=== PATIENT | female | born 1955 | race Caucasian/White ===

== ENCOUNTER 2017-02-15 07:35 | Emergency (ER) | payer BC ==
[2017-02-15 07:43] VITALS: BP 104/83
--- NOTE | 2017-02-15 08:01 | UC ---
Respiratory Complaint HPI - HPI Summary HPI Summary: 61 yo female with sinus pressure and pain x 10 days low energy no f/c no n/c post nasal drip and cough - History of Current Complaint Chief Complaint: UCRespiratory Stated Complaint: SINUS ISSUE Hx Obtained From: Patient Hx Last Menstrual Period: post menopausal Onset/Duration: Gradual Onset, Lasting Days - 10 Timing: Constant Severity Initially: Mild Severity Currently: Moderate Pain Intensity: 4 Pain Scale Used: 0-10 Numeric Character: Cough: Nonproductive Aggravating Factors: Nothing Alleviating Factors: Nothing Associated Signs And Symptoms: Positive: Nasal Congestion, Hoarseness, Sinus Discomfort - Allergies/Home Medications Allergies/Adverse Reactions: Allergies Allergy/AdvReac Type Severity Reaction Status Date / Time Sulfamethoxazole Allergy Intermediate Hives Verified 03/01/16 07:47 w/Trimethoprim [From Bactrim] Home Medications: Home Medications Methylphenidate HCl [Metadate ER] 20 mg PO PRN 02/15/17 [History] PMH/Surg Hx/FS Hx/Imm Hx Previously Healthy: Yes - Surgical History Surgical History: None - Family History Known Family History: Positive: Hypertension, Other - No Hx of cancer - Social History Alcohol Use: Weekly Substance Use Type: None Smoking Status (MU): Never Smoked Tobacco - Immunization History Most Recent Tetanus Shot: unsure Review of Systems Constitutional: Negative Skin: Negative Eyes: Negative ENT: Nasal Discharge, Sinus Congestion, Sinus Pain/Tenderness Respiratory: Negative Cardiovascular: Negative Gastrointestinal: Negative Genitourinary: Negative Motor: Negative Neurovascular: Negative Musculoskeletal: Negative Neurological: Negative Psychological: Negative Is Patient Immunocompromised?: No All Other Systems Reviewed And Are Negative: Yes Physical Exam Triage Information Reviewed: Yes Appearance: Well-Appearing, No Pain Distress, Well-Nourished Vital Signs: Initial Vital Signs Temp 99.1 F 02/15/17 07:39 Pulse 94 02/15/17 07:39 Resp 18 02/15/17 07:39 BP 104/83 02/15/17 07:39 Pulse Ox 100 02/15/17 07:39 Vital Signs Reviewed: Yes Eyes: Positive: Conjunctiva Clear ENT: Positive: Hearing grossly normal, Nasal congestion, Nasal drainage, TMs normal, Hoarse voice, Sinus tenderness, Uvula midline. Negative: Tonsillar swelling, Tonsillar exudate, Trismus, Muffled voice, Dental tenderness Neck: Positive: Nontender, No Lymphadenopathy Respiratory: Positive: Lungs clear, Normal breath sounds, No respiratory distress, No accessory muscle use Cardiovascular: Positive: RRR, No Murmur, Pulses Normal Musculoskeletal: Positive: ROM Intact, No Edema Neurological: Positive: Alert Psychological Exam: Normal Skin Exam: Normal UC Diagnostic Evaluation - Laboratory O2 Sat by Pulse Oximetry: 100 - normal/not hypoxic Respiratory Course/Dx - Differential Dx/Diagnosis Provider Diagnoses: acute sinusitis Discharge - Discharge Plan Condition: Stable Disposition: HOME Prescriptions: Amoxicillin PO (*) [Amoxicillin 875 MG (*)] 875 mg PO BID #20 tab Patient Education Materials: Sinusitis (ED) Referrals: Jennifer Vivar MD [Primary Care Provider] - 5 Days (if not better)
== END 2017-02-15 08:05 | disposition home or self-care (01) ==
LOC: UCEAST 07:35
DX: J01.90 Acute sinusitis, unspecified (principal)
CPT/HCPCS: 99212; G0463

== ENCOUNTER 2017-04-01 07:06 | Emergency (ER) | payer BC ==
[2017-04-01 07:17] VITALS: BP 112/65
--- NOTE | 2017-04-14 13:12 | UC ---
Alen Brown Tecjoon, scribed for Shelbie Barron DO on 04/01/17 at 0748 . Epistaxis Nasal HPI - HPI Summary HPI Summary: This patient is a 61 year old female presenting to [facility] with a chief complaint of probable sinus infection since a few days ago. The pain is rated 8/10 in severity. Symptoms aggravated by nothing. Symptoms alleviated by nothing. Patient additionally reports chills, sinus pressure, green/yellow phlegm, cough. - History of Current Complaint Chief Complaint: UCGeneralIllness Stated Complaint: sinus CONGESTION, AND CHILLS Time Seen by Provider: 04/01/17 07:13 Hx Obtained From: Patient Hx Last Menstrual Period: post menopausal Onset/Duration: Gradual Onset, Still Present Timing: Constant Severity Currently: Moderate Pain Intensity: 8 Pain Scale Used: 0-10 Numeric Aggravating Factor(s): Nothing Alleviating Factor(s): Nothing Associated Signs And Symptoms: Positive: Nasal Discharge - Allergies/Home Medications Allergies/Adverse Reactions: Allergies Allergy/AdvReac Type Severity Reaction Status Date / Time Sulfamethoxazole Allergy Intermediate Hives Verified 04/01/17 07:17 w/Trimethoprim [From Bactrim] PMH/Surg Hx/FS Hx/Imm Hx Previously Healthy: Yes Neurological History: Other - negative: dementia Other Neurological History: negative: dementia Other History Of: Negative For: HIV - Surgical History Surgical History: None - Family History Known Family History: Positive: Hypertension, Other - No Hx of cancer - Social History Alcohol Use: Occasionally Substance Use Type: None Smoking Status (MU): Never Smoked Tobacco - Immunization History Most Recent Influenza Vaccination: 2016 Most Recent Tetanus Shot: unsure Review of Systems Constitutional: Negative - fever, Chills ENT: Nasal Discharge, Sinus Congestion, Sinus Pain/Tenderness Respiratory: Cough All Other Systems Reviewed And Are Negative: Yes Physical Exam Triage Information Reviewed: Yes Vital Signs: Initial Vital Signs Temp 98.3 F 04/01/17 07:12 Pulse 87 04/01/17 07:12 Resp 20 04/01/17 07:12 BP 112/65 04/01/17 07:12 Pulse Ox 98 04/01/17 07:12 - Additional Comments Appearance: Well-Appearing, No Pain Distress, Well-Nourished Eyes: conjunctiva clear, no discharge ENT: Hearing grossly normal, no muffled/hoarse voice. Neck: Normal, Supple Respiratory/Lung Sounds: Lungs clear, Normal breath sounds, No respiratory distress, No accessory muscle use Cardiovascular: RRR, No murmur Musculoskeletal: Normal Neurological: Alert, muscle tone normal Psychiatric:Normal, age appropriate behavior Skin: Normal, Warm, Dry, Normal color Epistaxis Nasal Course/Dx - Course Course Of Treatment: This patient is a 61 year old female presenting to [facility] with a chief complaint of probable sinus infection since a few days ago. The pain is rated 8/10 in severity. Symptoms aggravated by nothing. Symptoms alleviated by nothing. Patient additionally reports chills, sinus pressure, green/yellow phlegm, cough. Paitnet will be diagnosed with Sinusitis. Patient will be discharged with prescription for Augmentin and follow up from PCP. The patient is agreeable with this plan. Medications reviewed. Allergies reviewed. - Differential Dx/Diagnosis Differential Diagnosis/HQI/PQRI: Sinusitis Provider Diagnoses: sinusitis Discharge - Discharge Plan Condition: Stable Disposition: HOME Prescriptions: Amoxicillin/Clavulanate TAB* [Augmentin TAB 875*] 875 mg PO BID #20 tab Patient Education Materials: Sinusitis (ED) Referrals: Jennifer Vivar MD [Primary Care Provider] - If Needed Additional Instructions: TRY USING THE NETTI POT IN THE MORNINGS DISCUSSED. YOU MUST ALWAYS USE CLEAN WATER. REMEMBER, POSTURE IS AN IMPORTANT FACTOR IN SINUS DRAINAGE. MOVE YOUR NECK, BREATHE. ANTIBIOTICS ARE NOT CURRENTLY INDICATED FOR YOUR CONDITION. HOWEVER, IF YOUR SYMPTOMS WORSEN OR PERSIST FOR OVER THE NEXT 3-5 DAYS, YOU CAN TAKE THE FOLLOWING MEDICATION: AUGMENTIN: Augmentin is a mixture of amoxicillin and clavulanate. Amoxicillin is a member of the penicillin family. It covers the germs likely to cause ear, bronchial, and urinary infections better than plain penicillin. The addition of clavulanate allows it to cover staph infections of the skin, as well as resistant cases of ear and sinus infections. Your physician has chosen Augmentin for you because of the special nature of your situation. Augmentin is best taken with meals. Nausea after taking the medication is rare, but can occur. Diarrhea can occur, particularly in small children. Vaginal yeast infections, and oral thrush in infants are also common. Contact your physician if these problems occur. Allergy to penicillins is common. If you have had an allergic reaction to any drug of the penicillin family, you should never take any other penicillin. Notify your doctor at once if you develop hives, shortness of breath, swelling, or faintness. ANYTIME YOU TAKE AN ANTIBIOTIC, IT IS IMPORTANT TO REPLENISH THE BODY'S SUPPLY OF "GOOD BACTERIA." YOU CAN GET GOOD BACTERIA FROM HIGH QUALITY CULTURED FOODS SUCH LOCAL YOGURT, SOUR KRAUT, QUINTIN MIRA, NATURALLY FERMENTED PICKLES AND PROBIOTIC DRINKS. YOU CAN ALSO GET GOOD BACTERIA FROM A PROBIOTIC SUPPLEMENT. YOU WOULD LIKELY BENEFIT FROM OSTEOPATHIC MANIPULATION. WE RECOMMEND THAT YOU FIND AN OSTEOPATHIC PHYSICIAN IN YOUR AREA WHO DOES LYMPHATIC, MYOFACIAL AND VISCERAL WORK The documentation as recorded by the Alen allen Tecjoon accurately reflects the service I personally performed and the decisions made by me, Shelbie Barron DO.
== END 2017-04-01 08:00 | disposition home or self-care (01) ==
LOC: UCEAST 07:06
DX: J32.9 Chronic sinusitis, unspecified (principal); Z88.2 Allergy status to sulfonamides
CPT/HCPCS: 99212; G0463

== ENCOUNTER 2017-06-15 17:29 | Emergency (ER) | payer BC ==
[2017-06-15 17:48] VITALS: BP 119/65
[2017-06-15] MEDS ORDERED: Amoxicillin/Clavulanate TAB* 500 MG PO ONE (18:46)
[2017-06-15] MEDS ORDERED: Tetan/Diph/Pertus SYR(Tdap)* 0.5 ML SYR(BOOSTRIX) use SYR IM ONE (18:49)
--- NOTE | 2017-06-15 18:58 | UC ---
Skin Complaint HPI - HPI Summary HPI Summary: Patient received a puncture wound from a broken piece of glass in her garbage last night to her right palm near her thumb, area around puncture wound is red and tender around that is bruised neuro motor and circulation is intact distally - History of Current Complaint Chief Complaint: UCUpperExtremity Time Seen by Provider: 06/15/17 18:16 Stated Complaint: HAND LAC Hx Obtained From: Patient Hx Last Menstrual Period: post menopausal ?: No Onset/Duration: Sudden Onset, Lasting Days - 1, Still Present Timing: Constant Onset Severity: Mild Current Severity: Mild Pain Intensity: 0 Pain Scale Used: 0-10 Numeric Location: Discrete - Palm of her hand Character: Pain Aggravating Factor(s): Nothing - U medical: The car HIS stomach is killing him safely and we can hold responsibility to follow up with a reasonable person put him in because he the right is for use but isn't [facility] community resources to extend into the hospital Alleviating Factor(s): Nothing Associated Signs & Symptoms: Positive: Tenderness - Allergy/Home Medications Allergies/Adverse Reactions: Allergies Allergy/AdvReac Type Severity Reaction Status Date / Time sulfamethoxazole Allergy Swelling Verified 06/15/17 17:48 [From Bactrim] trimethoprim [From Bactrim] Allergy Swelling Verified 06/15/17 17:48 Review of Systems Constitutional: Negative Skin: Negative, Other - Puncture wound to the palmar surface of her right hand near her thumb Eyes: Negative ENT: Negative Respiratory: Negative Cardiovascular: Negative Gastrointestinal: Negative Genitourinary: Negative Motor: Negative Neurovascular: Negative Musculoskeletal: Negative Neurological: Negative Psychological: Negative Is Patient Immunocompromised?: No All Other Systems Reviewed And Are Negative: Yes PMH/Surg Hx/FS Hx/Imm Hx Previously Healthy: No Endocrine History: Hypothyroidism Other History Of: Negative For: HIV - Surgical History Surgical History: None - Family History Known Family History: Positive: Hypertension, Other - No Hx of cancer - Social History Occupation: Employed Full-time Lives: With Family Alcohol Use: Occasionally Substance Use Type: None Smoking Status (MU): Never Smoked Tobacco - Immunization History Most Recent Influenza Vaccination: 2015 Most Recent Tetanus Shot: unsure Physical Exam Triage Information Reviewed: Yes Appearance: Well-Appearing, No Pain Distress, Well-Nourished Vital Signs: Initial Vital Signs Temp 98.3 F 06/15/17 17:37 Pulse 77 06/15/17 17:37 Resp 16 06/15/17 17:37 BP 119/65 06/15/17 17:37 Pulse Ox 97 06/15/17 17:37 Vital Signs Reviewed: Yes Eye Exam: Normal Eyes: Positive: Conjunctiva Clear ENT Exam: Normal ENT: Positive: Normal ENT inspection, Hearing grossly normal. Negative: Nasal congestion, Nasal drainage, Trismus, Muffled voice, Hoarse voice Neck exam: Normal Neck: Positive: Supple, Nontender Respiratory Exam: Normal Respiratory: Positive: No respiratory distress, No accessory muscle use Cardiovascular Exam: Normal Cardiovascular: Positive: Pulses Normal, Brisk Capillary Refill Musculoskeletal Exam: Normal Musculoskeletal: Positive: Strength Intact, ROM Intact, No Edema Neurological Exam: Normal Neurological: Positive: Alert Psychological Exam: Normal Skin Exam: Other Skin: Positive: Other - Puncture wound to her right hand just below the base of her thumb immediate area has about a 4 cm diameter area of erythema in about a 1 cm area of bruising outside of that Course/Dx - Course Course Of Treatment: Update tetanus start on Augmentin and warm soaks follow with PCP when necessary and follow with hand surgeon - Diagnoses Provider Diagnoses: Puncture wound to the right hand Discharge - Sign-Out/Discharge Documenting (check all that apply): Discharge - Discharge Plan Condition: Stable Disposition: HOME Prescriptions: Amoxicillin/Clavulanate TAB* [Augmentin TAB 875*] 875 mg PO BID #20 tab Patient Education Materials: Puncture Wound (ED), Diphtheria/Acellular Pertussis/Tetanus Booster Vaccine (By injection), Warm Compress or Soak (ED) Referrals: Jennifer Vivar MD [Primary Care Provider] - Rosalia Castro MD [Medical Doctor] - 3 Days - Billing Disposition and Condition Condition: STABLE Disposition: HOME
== END 2017-06-15 19:15 | disposition home or self-care (01) ==
LOC: UCEAST 17:29
DX: S61.431A Puncture wound without foreign body of right hand, initial encounter (principal); W25.XXXA Contact with sharp glass, initial encounter; Y92.9 Unspecified place or not applicable; Z23 Encounter for immunization; Z88.2 Allergy status to sulfonamides
CPT/HCPCS: 90715; 96372; 99212; A9270-GY; G0463

== ENCOUNTER 2018-03-03 08:18 | Emergency (ER) | payer BC ==
[2018-03-03 08:26] VITALS: BP 114/68
--- NOTE | 2018-03-03 08:40 | UC ---
Throat Pain/Nasal Geovani HPI - HPI Summary HPI Summary: 62-year-old woman comes to clinic today with chief complaint of runny nose sore throat cough chest congestion. She states she's had some upper respiratory tract infection symptoms for almost 2 months. She did improve quite a bit after taking Augmentin 2 months ago but she feels like the infection never totally went away. Last 2 days been having yellow rhinorrhea and sputum. No wheezing. - History of Current Complaint Chief Complaint: UCRespiratory Stated Complaint: CONGESTED Time Seen by Provider: 03/03/18 08:29 Hx Last Menstrual Period: post menopausal Pain Intensity: 4 - Allergies/Home Medications Allergies/Adverse Reactions: Allergies Allergy/AdvReac Type Severity Reaction Status Date / Time sulfamethoxazole Allergy Swelling Verified 06/15/17 17:48 [From Bactrim] trimethoprim [From Bactrim] Allergy Swelling Verified 06/15/17 17:48 PMH/Surg Hx/FS Hx/Imm Hx Previously Healthy: Yes Endocrine History: Hypothyroidism Other History Of: Negative For: HIV - Surgical History Surgical History: None - Family History Known Family History: Positive: Hypertension, Other - No Hx of cancer - Social History Alcohol Use: Occasionally Substance Use Type: None Smoking Status (MU): Never Smoked Tobacco - Immunization History Most Recent Influenza Vaccination: 2016 Most Recent Tetanus Shot: unsure Review of Systems All Other Systems Reviewed And Are Negative: Yes Constitutional: Positive: Negative Skin: Positive: Negative Eyes: Positive: Negative ENT: Positive: Sore Throat, Nasal Discharge, Sinus Congestion Respiratory: Positive: Cough Cardiovascular: Positive: Negative Gastrointestinal: Positive: Negative Motor: Positive: Negative Neurovascular: Positive: Negative Musculoskeletal: Positive: Negative Neurological: Positive: Negative Psychological: Positive: Negative Is Patient Immunocompromised?: No Physical Exam Triage Information Reviewed: Yes Appearance: No Pain Distress, Well-Nourished, Ill-Appearing - mild Vital Signs: Initial Vital Signs Temp 97.8 F 03/03/18 08:23 Pulse 81 03/03/18 08:23 Resp 18 03/03/18 08:23 BP 114/68 03/03/18 08:23 Pulse Ox 99 03/03/18 08:23 Vital Signs Reviewed: Yes Eye Exam: Normal Eyes: Positive: Conjunctiva Clear ENT: Positive: Pharyngeal erythema, Nasal congestion, Nasal drainage, TMs normal Neck exam: Normal Neck: Positive: Supple Respiratory: Positive: Lungs clear, Normal breath sounds, No respiratory distress Cardiovascular: Positive: RRR Musculoskeletal Exam: Normal Musculoskeletal: Positive: Strength Intact, ROM Intact Neurological Exam: Normal Neurological: Positive: Alert, Muscle Tone Normal Psychological Exam: Normal Psychological: Positive: Age Appropriate Behavior Skin Exam: Normal Throat Pain/Nasal Course/Dx - Course Course Of Treatment: DISCUSSED VIRAL VERSES BACTERIAL INFECTION AND THE ROLE OF ANTIBIOTICS. THE PATIENT WISHES TO BE ON ANTIBIOTIC AT THIS TIME. - Differential Dx/Diagnosis Provider Diagnosis: Upper respiratory tract infection Discharge - Sign-Out/Discharge Documenting (check all that apply): Patient Departure All imaging exams completed and their final reports reviewed: No Studies - Discharge Plan Condition: Stable Disposition: HOME Prescriptions: Amoxicillin/Clavulanate TAB* [Augmentin TAB 875*] 875 mg PO BID #20 tab Patient Education Materials: Upper Respiratory Infection (ED) Referrals: Jennifer Vivar MD [Primary Care Provider] - Additional Instructions: FOLLOW UP WITH YOUR DOCTOR IF NOT COMPLETELY IMPROVED. GET RECHECKED FOR ANY WORSENING OF YOUR CONDITION OR QUESTIONS OR CONCERNS. - Billing Disposition and Condition Condition: STABLE Disposition: Home
== END 2018-03-03 08:50 | disposition home or self-care (01) ==
LOC: UCEAST 08:18
DX: N39.0 Urinary tract infection, site not specified (principal); Z88.1 Allergy status to other antibiotic agents
CPT/HCPCS: 99212; G0463

== ENCOUNTER 2018-05-27 07:16 | Emergency (ER) | payer BC ==
--- NOTE | 2018-05-27 07:19 | UC ---
Complaint Female HPI - HPI Summary HPI Summary: Pt presents with 5 days progressive dysuria, hematuria and pressure. no n/v. No back. No vaginal discharge, itching, odor. pt with previous h/o UTI - years ago No OTC med taken medications reviewed this visti - History Of Current Complaint Stated Complaint: URINARY ISSUE Hx Obtained From: Patient, Medical Records Hx Last Menstrual Period: post menopausal - Allergies/Home Medications Allergies/Adverse Reactions: Allergies Allergy/AdvReac Type Severity Reaction Status Date / Time sulfamethoxazole Allergy Swelling Verified 05/27/18 08:05 [From Bactrim] trimethoprim [From Bactrim] Allergy Swelling Verified 05/27/18 08:05 Home Medications: Home Medications Phenazopyridine TAB* [Pyridium 100 mg TAB*] 100 mg PO ONCE 05/27/18 [History Confirmed 05/27/18] PMH/Surg Hx/FS Hx/Imm Hx Previously Healthy: Yes Other History Of: Negative For: HIV - Surgical History Surgical History: None - Family History Known Family History: Positive: Hypertension, Other - No Hx of cancer, Non- Contributory - Social History Occupation: Employed Full-time Lives: With Family Alcohol Use: Occasionally Substance Use Type: None Smoking Status (MU): Never Smoked Tobacco - Immunization History Most Recent Influenza Vaccination: 2016 Most Recent Tetanus Shot: unsure Review of Systems All Other Systems Reviewed And Are Negative: Yes Constitutional: Positive: Negative Skin: Positive: Negative Genitourinary: Positive: Dysuria, Hematuria, Frequency, Urgency. Negative: Vaginal/Penile Burning, Vaginal/Penile Discharge, Vaginal/Penile Pain Physical Exam - Summary Physical Exam Summary: Vital Signs Reviewed: Yes A+Ox3, no distress Eyes: Conjunctiva Clear, ADAMARIS. EOM intact and full ENT: Hearing grossly normal TM x 2 clear, mmoist, uvula midline, no exudate, no erythema Neck: Positive: Supple Respiratory: Positive: No respiratory distress, No accessory muscle use + CTA throughout no w/r Cardiovascular: RRR nl s1, s2 no m/r CBT <2 sec abd soft + BS nt/nd no guarding, no distension, no CVA Musculoskeletal Exam: ANTONIO x 4 without difficulty Strength Intact, ROM Intact Neurological: Positive: Alert, + sensation throughout Psychological: Positive: Normal Response To Family Skin: Positive: no rash, no ecchymosis Triage Information Reviewed: Yes Complaint Female Dx - Course Course Of Treatment: PT presents with progressive hematuria, urgency, pressure. No fever, chills. no analesia. reviewed urinalysis- non convincing, but symptomatic. will start abx. pyridium. hydrate. culture. return precautions - Differential Dx/Diagnosis Provider Diagnosis: UTI (urinary tract infection) Discharge - Sign-Out/Discharge Documenting (check all that apply): Patient Departure All imaging exams completed and their final reports reviewed: No Studies - Discharge Plan Condition: Stable Disposition: HOME Prescriptions: Cephalexin CAP* [Keflex CAP*] 500 mg PO BID #14 cap Phenazopyridine TAB* [Pyridium 100 mg TAB*] 100 mg PO TID PRN #9 tab PRN Reason: burning with urination Patient Education Materials: Urinary Tract Infection in Women (ED) Referrals: Jennifer Vivar MD [Primary Care Provider] - Wilda Rocha PA [Physician Alteration Tailor Apprentice] - Additional Instructions: - stay well hydrated - drink plenty of non-alcoholic, non caffinated beverages - your urine will be further tested - if you require any changes to your treatment, we will contact you - this usually take 2 days - Contact your primary doctor to arrange a follow-up appointment next week. Contact your doctor or return with questions or concerns - Take your antibiotics exactly as prescribed until gone - Take pyridium as prescribed for discomfort. This will make your urine blaze orange - this is normal - Okay to alternate ibuprofen (Advil, Motrin) and Tylenol every 3 hours for pain. Take with food - Call your doctor or return with questions or concerns - Billing Disposition and Condition Condition: STABLE Disposition: Home
[2018-05-27 08:12] VITALS: BP 127/76
--- NOTE | 2018-05-28 15:45 | UC ---
- Progress Note Progress Note: Urine culture preliminary >100,000 E.Coli Treated with Pyridium and Cephalexin. Awaiting sensitivities. Course/Dx - Course Course Of Treatment: Pt on Cephalexin, awaiting sensitivities - Diagnoses Provider Diagnoses: UTI (urinary tract infection) Discharge - Sign-Out/Discharge Documenting (check all that apply): Post-Discharge Follow Up All imaging exams completed and their final reports reviewed: No Studies - Discharge Plan Condition: Stable Disposition: HOME Prescriptions: Cephalexin CAP* [Keflex CAP*] 500 mg PO BID #14 cap Phenazopyridine TAB* [Pyridium 100 mg TAB*] 100 mg PO TID PRN #9 tab PRN Reason: burning with urination Patient Education Materials: Urinary Tract Infection in Women (ED) Referrals: Jennifer Vivar MD [Primary Care Provider] - Wilda Rocha PA [Physician Principal Product Manager] - Additional Instructions: - stay well hydrated - drink plenty of non-alcoholic, non caffinated beverages - your urine will be further tested - if you require any changes to your treatment, we will contact you - this usually take 2 days - Contact your primary doctor to arrange a follow-up appointment next week. Contact your doctor or return with questions or concerns - Take your antibiotics exactly as prescribed until gone - Take pyridium as prescribed for discomfort. This will make your urine blaze orange - this is normal - Okay to alternate ibuprofen (Advil, Motrin) and Tylenol every 3 hours for pain. Take with food - Call your doctor or return with questions or concerns - Billing Disposition and Condition Condition: STABLE Disposition: Home - Attestation Statements Provider Attestation: The patient was not presented to, seen by, or examined by me. -Dl
== END 2018-05-27 08:43 | disposition home or self-care (01) ==
LOC: UCEAST 07:16
DX: N39.0 Urinary tract infection, site not specified (principal); B96.20 Unspecified Escherichia coli [E. coli] as the cause of diseases classified elsewhere; R31.9 Hematuria, unspecified; Z88.2 Allergy status to sulfonamides
CPT/HCPCS: 81003; 87077; 87086; 87186; 99212; G0463

== ENCOUNTER 2018-07-29 14:50 | Emergency (ER) | payer BC ==
--- NOTE | 2018-07-29 14:58 | UC ---
Complaint Female HPI - HPI Summary HPI Summary: 62 yo female presents with urinary burning, frequency, and bladder pressure for the last week. She tells me that she had a UTI about 2 months ago and felt much better, but feels that it never fully resolved. Her symptoms have increased over the last week. Denies abdominal pain, n/v, flank pain, fever, hematuria, vaginal bleeding or discharge. - History Of Current Complaint Stated Complaint: URINARY COMPLAINT Time Seen by Provider: 07/29/18 14:57 Hx Obtained From: Patient Hx Last Menstrual Period: post menopausal Onset/Duration: Gradual Onset Timing: Constant Severity Initially: Mild Severity Currently: Moderate Pain Intensity: 3 Pain Scale Used: 0-10 Numeric - Allergies/Home Medications Allergies/Adverse Reactions: Allergies Allergy/AdvReac Type Severity Reaction Status Date / Time sulfamethoxazole Allergy Swelling Verified 07/29/18 14:57 [From Bactrim] trimethoprim [From Bactrim] Allergy Swelling Verified 07/29/18 14:57 Home Medications: Home Medications Bioidentical Hormones 1 cap PO DAILY 07/29/18 [History] PMH/Surg Hx/FS Hx/Imm Hx - Additional Past Medical History Additional PMH: None Other History Of: Negative For: HIV - Surgical History Surgical History: None - Family History Known Family History: Positive: Hypertension, Other - No Hx of cancer, Non- Contributory - Social History Occupation: Employed Full-time Lives: With Family Alcohol Use: Occasionally Substance Use Type: None Smoking Status (MU): Never Smoked Tobacco - Immunization History Most Recent Influenza Vaccination: 2016 Most Recent Tetanus Shot: unsure Review of Systems All Other Systems Reviewed And Are Negative: Yes Constitutional: Positive: Negative Skin: Positive: Negative Respiratory: Positive: Negative Cardiovascular: Positive: Negative Gastrointestinal: Positive: Negative Genitourinary: Positive: Dysuria, Frequency, Urgency Neurovascular: Positive: Negative Neurological: Positive: Negative Psychological: Positive: Negative Physical Exam - Summary Physical Exam Summary: GENERAL: NAD. WDWN. No pain distress. SKIN: No rashes, sores, lesions, or open wounds. NECK: Supple. Nontender. No lymphadenopathy. CHEST: CTAB. No r/r/w. No accessory muscle use. Breathing comfortably and in no distress. CV: RRR. Without m/r/g. Pulses intact. Cap refill <2seconds ABDOMEN: Soft. NTTP. No CVA tenderness. Bowel sounds present NEURO: Alert. PSYCH: Age appropriate behavior. Triage Information Reviewed: Yes Vital Signs: Vital Signs: Temp Pulse Resp BP Pulse Ox 98.9 F 78 18 103/63 98 07/29/18 14:57 07/29/18 14:57 07/29/18 14:57 07/29/18 14:57 07/29/18 14:57 Laboratory Tests 07/29/18 15:05 POC Urine Color Yellow POC Urine Clarity Clear POC Urine pH 6.0 POC Ur Specif [place] 1.015 POC Urine Protein Negative POC Ur Glucose (UA) Negative POC Urine Ketones Negative POC Urine Blood Negative POC Urine Nitrite Negative POC Urine Bilirubin Negative POC Urine Urobilinogen 0.2 POC U Leukocyte Esteras Trace A Vital Signs Reviewed: Yes Complaint Female Dx - Course Course Of Treatment: UA with trace leuks. Given recent hx of UTI and current pt dysuria - will treat with macrobid as this was sensitive on last culture. - Differential Dx/Diagnosis Provider Diagnosis: UTI (urinary tract infection) Discharge - Sign-Out/Discharge Documenting (check all that apply): Patient Departure All imaging exams completed and their final reports reviewed: No Studies - Discharge Plan Condition: Stable Disposition: HOME Prescriptions: Nitrofurantoin Monohyd/M-Cryst [Macrobid 100 mg Capsule] 100 mg PO BID #10 cap Patient Education Materials: Urinary Tract Infection in Women (DC) Referrals: Jennifer Vivar MD [Primary Care Provider] - Additional Instructions: If you develop a fever, shortness of breath, chest pain, new or worsening symptoms - please call your PCP or go to the ED immediately. - Billing Disposition and Condition Condition: STABLE Disposition: Home
[2018-07-29 15:04] VITALS: BP 103/63
== END 2018-07-29 15:15 | disposition home or self-care (01) ==
LOC: UCEAST 14:50
DX: N39.0 Urinary tract infection, site not specified (principal); Z87.440 Personal history of urinary (tract) infections; Z88.2 Allergy status to sulfonamides
CPT/HCPCS: 81003; 87077; 87086; 87186; 99212; G0463

== ENCOUNTER 2018-08-08 11:26 | Emergency (ER) | payer BC ==
[2018-08-08 11:48] VITALS: BP 116/59
--- NOTE | 2018-08-08 12:04 | UC ---
Complaint Female HPI - HPI Summary HPI Summary: Patient is a 62-year-old female who presents to the urgent care with a chief complaint of having dysuria, urinary frequency, urinary urgency and the strong odor in the urine for the last 2 days. She reports that she just finished taking Macrobid for a UTI and she was feeling better and she stopped taking the medication. Now she is having the same symptoms. She denies any abdominal pain or back pain. She denies any nausea or vomiting or fevers or chills. She has no other complaints. - History Of Current Complaint Chief Complaint: UCGU Stated Complaint: BURNING URINATION Time Seen by Provider: 08/08/18 11:54 Hx Obtained From: Patient Hx Last Menstrual Period: post menopausal Pain Intensity: 2 - Allergies/Home Medications Allergies/Adverse Reactions: Allergies Allergy/AdvReac Type Severity Reaction Status Date / Time sulfamethoxazole Allergy Swelling Verified 08/08/18 11:48 [From Bactrim] trimethoprim [From Bactrim] Allergy Swelling Verified 08/08/18 11:48 PMH/Surg Hx/FS Hx/Imm Hx Other History Of: Negative For: HIV - Surgical History Surgical History: None - Family History Known Family History: Positive: Hypertension, Other - No Hx of cancer, Non- Contributory - Social History Alcohol Use: Rare Substance Use Type: None Smoking Status (MU): Never Smoked Tobacco - Immunization History Most Recent Influenza Vaccination: 2016 Most Recent Tetanus Shot: unsure Review of Systems All Other Systems Reviewed And Are Negative: Yes Constitutional: Positive: Negative Skin: Positive: Negative Eyes: Positive: Negative ENT: Positive: Negative Respiratory: Positive: Negative Cardiovascular: Positive: Negative Gastrointestinal: Positive: Negative Genitourinary: Positive: Dysuria, Frequency, Urgency Motor: Positive: Negative Neurovascular: Positive: Negative Musculoskeletal: Positive: Negative Neurological: Positive: Negative Psychological: Positive: Negative Is Patient Immunocompromised?: No Physical Exam - Summary Physical Exam Summary: VITAL SIGNS: Reviewed. GENERAL: Patient is a well developed and nourished female who is sitting comfortable in the stretcher. Patient is not in any acute respiratory distress. HEAD AND FACE: Normocephalic and atraumatic. EYES: PERRLA, EOMI x 2, EARS: Hearing grossly intact. MOUTH: Oropharynx within normal limits. NECK: Supple, trachea is midline, no adenopathy, no JVD, no carotid bruit, no c- spine tenderness, neck with full ROM. CHEST: Symmetric, no tenderness at palpation LUNGS: CTA B/L. No wheezing or crackles. CVS: RRR, S1 and S2 present, no murmurs or gallops appreciated. ABDOMEN: Soft, NT, No distention. Normal BS. EXTREMITIES: FROM in all major joints, no edema, no cyanosis or clubbing. NEURO: Alert and oriented x 3. No acute neurological deficits. Speech is normal and follows commands. SKIN: Dry and warm Triage Information Reviewed: Yes Vital Signs: Initial Vital Signs Temp 99.3 F 08/08/18 11:43 Pulse 80 08/08/18 11:43 Resp 18 08/08/18 11:43 BP 116/59 08/08/18 11:43 Pulse Ox 96 08/08/18 11:43 Complaint Female Dx - Course Course Of Treatment: He seems that the urinalysis negative for UTI. However, she just finished taking antibiotics and may be is masking the results for the urinalysis. Since the patient is having symptoms of her usual UTI I will place the patient in Ciprofloxacin and I will send the urine culture. She was recommended to follow up the culture with a primary care physician. The patient understands and agrees. She has no complaints. She is hemodynamically stable. - Differential Dx/Diagnosis Provider Diagnosis: UTI symptoms Discharge - Sign-Out/Discharge Documenting (check all that apply): Patient Departure All imaging exams completed and their final reports reviewed: No Studies - Discharge Plan Condition: Stable Disposition: HOME Prescriptions: Ciprofloxacin TAB* [Cipro 500 MG TAB*] 500 mg PO BID #6 tab Patient Education Materials: Urinary Urgency and Frequency (DC) Referrals: Jennifer Vivar MD [Primary Care Provider] - Additional Instructions: Take medications as instructed Increase your fluid intake Return to the if symptoms worsen - Billing Disposition and Condition Condition: STABLE Disposition: Home
--- NOTE | 2018-08-10 15:50 | UC ---
- Progress Note Progress Note: urine culture final results; No growth of clinically significant organisms As per the note, patient just completed the antibiotics when her urine was obtained but was treated as she was symptomatic. there is a possibility of urine culture being masked by the antibiotics. she was treated with ciprofloxacin for 3 days and today is her day 3. No change in plan. Course/Dx - Diagnoses Provider Diagnoses: UTI symptoms Discharge - Sign-Out/Discharge Documenting (check all that apply): Post-Discharge Follow Up All imaging exams completed and their final reports reviewed: No Studies - Discharge Plan Condition: Stable Disposition: HOME Prescriptions: Ciprofloxacin TAB* [Cipro 500 MG TAB*] 500 mg PO BID #6 tab Patient Education Materials: Urinary Urgency and Frequency (DC) Referrals: Jennifer Vivar MD [Primary Care Provider] - Additional Instructions: Take medications as instructed Increase your fluid intake Return to the UC if symptoms worsen - Billing Disposition and Condition Condition: STABLE Disposition: Home
== END 2018-08-08 12:11 | disposition home or self-care (01) ==
LOC: UCEAST 11:26
DX: R30.0 Dysuria (principal); R35.0 Frequency of micturition; R39.15 Urgency of urination; Z88.2 Allergy status to sulfonamides
CPT/HCPCS: 81003; 87086; 99212; G0463

== ENCOUNTER 2018-08-15 12:03 | Emergency (ER) | payer BC ==
[2018-08-15 13:26] VITALS: BP 117/74
--- NOTE | 2018-08-15 14:07 | UC ---
Complaint Female HPI - HPI Summary HPI Summary: PATIENT HAS HAD SEVERAL MONTHS OF UTI SYMPTOMS INCLUDING DYSURIA, FREQUENCY AND URGENCY. MOST RECENTLY SHE WAS TREATED WITH MACROBID ON 07/29/18 AND THEN WITH CIPROFLOXACIN ON 08/08/18. SHE STATES THAT HER SYMPTOMS ARE STILL PERSISTENT. NO FEVER, NAUSEA, BACK PAIN. OF NOTE URINE CULTURE ON 07/29/18 WAS POSITIVE FOR 25-50,000 COLONIES OF E. COLI. URINE CULTURE ON 08/08/18 SHOWED NO GROWTH. SHE DENIES ANY VAGINAL IRRITATION OR DISCHARGE. NO BLEEDING. SHE HAS NOT HAD SEX FOR ABOUT 3 MONTHS. HAS HAD THE SAME SEXUAL PARTNER FOR MORE THAN 19 YEARS. THEY DO NOT USE BARRIER METHODS. - History Of Current Complaint Chief Complaint: UCGU Stated Complaint: UTI Time Seen by Provider: 08/15/18 13:30 Hx Obtained From: Patient Hx Last Menstrual Period: post menopausal Onset/Duration: Gradual Onset, Lasting Weeks, Still Present Timing: Constant Severity Initially: Moderate Severity Currently: Moderate Pain Intensity: 4 Pain Scale Used: 0-10 Numeric Character: Burning Aggravating Factor(s): Urination Alleviating Factor(s): Nothing Associated Signs And Symptoms: Negative: Fever, Back Pain, Vaginal Bleeding/ Discharge, Nausea - Allergies/Home Medications Allergies/Adverse Reactions: Allergies Allergy/AdvReac Type Severity Reaction Status Date / Time sulfamethoxazole Allergy Swelling Verified 08/15/18 13:27 [From Bactrim] trimethoprim [From Bactrim] Allergy Swelling Verified 08/15/18 13:27 PMH/Surg Hx/FS Hx/Imm Hx - Additional Past Medical History Additional PMH: ADHD Endocrine History: Hypothyroidism Other History Of: Negative For: HIV - Surgical History Surgical History: None - Family History Known Family History: Positive: Hypertension, Other - No Hx of cancer - Social History Alcohol Use: Rare Substance Use Type: None Smoking Status (MU): Never Smoked Tobacco - Immunization History Most Recent Influenza Vaccination: 2016 Most Recent Tetanus Shot: unsure Review of Systems All Other Systems Reviewed And Are Negative: Yes Constitutional: Positive: Negative Respiratory: Positive: Negative Cardiovascular: Positive: Negative Gastrointestinal: Positive: Abdominal Pain Genitourinary: Positive: Dysuria, Frequency, Urgency. Negative: Vaginal/Penile Burning, Vaginal/Penile Itching, Vaginal/Penile Discharge Physical Exam Triage Information Reviewed: Yes Appearance: Well-Appearing, No Pain Distress, Well-Nourished Vital Signs: Initial Vital Signs Temp 98 F 08/15/18 13:23 Pulse 75 08/15/18 13:23 Resp 16 08/15/18 13:23 BP 117/74 08/15/18 13:23 Pulse Ox 100 08/15/18 13:23 Laboratory Tests 08/15/18 13:35 POC Urine Color Yellow POC Urine Clarity Clear POC Urine pH 6.0 POC Ur Specif [place] 1.010 POC Urine Protein Negative POC Ur Glucose (UA) Negative POC Urine Ketones Negative POC Urine Blood Negative POC Urine Nitrite Negative POC Urine Bilirubin Negative POC Urine Urobilinogen 0.2 POC U Leukocyte Esteras Trace A Vital Signs Reviewed: Yes Eyes: Positive: Conjunctiva Clear ENT: Positive: Hearing grossly normal Neck: Positive: Supple Respiratory: Positive: No respiratory distress, No accessory muscle use Cardiovascular: Positive: Pulses Normal Abdomen Description: Positive: Nontender, Soft. Negative: CVA Tenderness (R), CVA Tenderness (L), Distended, Guarding Pelvic Exam: Positive: External Exam Normal, Speculum Exam Normal, Bimanual Exam Normal, No Cerv. Motion Tender, No Masses. Negative: Discharge Musculoskeletal: Positive: No Edema Neurological: Positive: Alert Psychological: Positive: Age Appropriate Behavior Skin: Negative: Rashes Complaint Female Dx - Course Course Of Treatment: PELVIC EXAM UNREMARKABLE. URINE TEST TODAY WITH TRACE BACTERIA BUT OTHERWISE UNREMARKABLE. WILL SEND URINE FOR CULTURE TO ENSURE NO ACTIVE INFECTION. WILL ALSO TEST FOR UREAPLASMA AND MYCOPLASMA. CONSIDER INTERSTITIAL CYSTITIS CAUSES OF PATIENT'S SYMPTOMS. SHE HAS HAD 2 VAGINAL DELIVERIES AND SO CERTAINLY THERE IS A POSSIBILITY OF SOME LEVEL OF PROLAPSE PREDISPOSING HER TO HER SYMPTOMS. SWABS TAKEN FOR GONORRHEA/CHLAMYDIA AND VAGINITIS. HAVE RECOMMENDED THE PATIENT CALL UROLOGY FOR FOLLOW-UP EVALUATION. - Differential Dx/Diagnosis Provider Diagnosis: Dysuria Discharge - Sign-Out/Discharge Documenting (check all that apply): Patient Departure All imaging exams completed and their final reports reviewed: No Studies - Discharge Plan Condition: Stable Disposition: HOME Patient Education Materials: Dysuria (ED), Interstitial Cystitis (ED) Referrals: [facility] [Provider Group] - 1 Week Jennifer Vivar MD [Primary Care Provider] - If Needed Additional Instructions: URINE TEST TODAY HAS TRACE BACTERIA BUT IS OTHERWISE UNREMARKABLE. WILL SEND IT FOR CULTURE TO ENSURE NO ACTIVE INFECTION. YOUR SYMPTOMS MAY BE DUE TO INTERSTITIAL CYSTITIS BUT CERTAINLY YOUR LONG-STANDING SYMPTOMS WARRANT EVALUATION BY A SPECIALIST. I WOULD RECOMMEND YOU CALL UROLOGY TODAY TO SCHEDULE AN APPOINTMENT FOR EVALUATION. BE SURE TO STAY WELL-HYDRATED. PELVIC EXAM TODAY WAS UNREMARKABLE. SWABS WERE TAKEN FOR GONORRHEA/CHLAMYDIA AND FOR VAGINITIS. WE WILL CALL YOU WITH ANY ABNORMAL RESULTS. - Billing Disposition and Condition Condition: STABLE Disposition: Home
[2018-08-17 11:05] LABS: Neisseria gonorrhoeae (GC) RNA Negative (Negative)
--- NOTE | 2018-08-17 15:09 | UC ---
- Progress Note Progress Note: 08/17/2018 T.Vaginalis RNA: pending GC/Chlamy RNA: negative No change Miladys VASQUEZ Course/Dx - Diagnoses Provider Diagnoses: Dysuria Discharge - Sign-Out/Discharge Documenting (check all that apply): Post-Discharge Follow Up All imaging exams completed and their final reports reviewed: No Studies - Discharge Plan Condition: Stable Disposition: HOME Patient Education Materials: Dysuria (ED), Interstitial Cystitis (ED) Referrals: [facility] [Provider Group] - 1 Week Jennifer Vivar MD [Primary Care Provider] - If Needed Additional Instructions: URINE TEST TODAY HAS TRACE BACTERIA BUT IS OTHERWISE UNREMARKABLE. WILL SEND IT FOR CULTURE TO ENSURE NO ACTIVE INFECTION. YOUR SYMPTOMS MAY BE DUE TO INTERSTITIAL CYSTITIS BUT CERTAINLY YOUR LONG-STANDING SYMPTOMS WARRANT EVALUATION BY A SPECIALIST. I WOULD RECOMMEND YOU CALL UROLOGY TODAY TO SCHEDULE AN APPOINTMENT FOR EVALUATION. BE SURE TO STAY WELL-HYDRATED. PELVIC EXAM TODAY WAS UNREMARKABLE. SWABS WERE TAKEN FOR GONORRHEA/CHLAMYDIA AND FOR VAGINITIS. WE WILL CALL YOU WITH ANY ABNORMAL RESULTS. - Billing Disposition and Condition Condition: STABLE Disposition: Home - Attestation Statements Provider Attestation: I was available for consult. This patient was seen by the [facility]. The patient was not presented to, seen by, or examined by me. -Dl
[2018-08-19 15:21] LABS: Mycoplasma hominis Result Negative; Mycoplasma hominis Source URINE; Ureaplasma Source URINE; Ureaplasma parvum PCR Negative; Ureaplasma urealyticum PCR Negative
[2018-08-20 13:08] LABS: Trichomonas vaginalis Result Negative (Negative)
== END 2018-08-15 14:37 | disposition home or self-care (01) ==
LOC: UCEAST 12:03
DX: R30.0 Dysuria (principal); R35.0 Frequency of micturition; R39.15 Urgency of urination; F90.9 Attention-deficit hyperactivity disorder, unspecified type; Z78.0 Asymptomatic menopausal state; Z88.2 Allergy status to sulfonamides
CPT/HCPCS: 81003; 87086; 87480; 87491; 87510; 87591; 87661; 87798; 99212; G0463

== ENCOUNTER 2018-09-15 20:30 | Emergency (ER) | payer BC ==
[2018-09-15 20:45] VITALS: BP 128/77
--- NOTE | 2018-09-15 21:14 | UC ---
Laceration HPI - HPI Summary HPI Summary: 62 y/o female presents to the urgent care c/o Laceration of medial aspect of her left great toe s/p stepping in a sharp garden tool around 1800 pm. Pt states bleeding stopped w/ pressure. Pain is 4/10 at touch and she can move toe w/o any difficulty. Pt reports last Tetanus vaccine was given in 2016. Pt denies numbness or tingling sensation over the left great toe or foot. Pt denies fever, SOb, chest pain, abdominal pain, N/V/D. - History Of Current Complaint Chief Complaint: UCLowerExtremity Stated Complaint: LEFT TOE LAC Time Seen by Provider: 09/15/18 20:55 Hx Obtained From: Patient Hx Last Menstrual Period: post menopausal Laceration Location: Foot - left great toe laceration w/ a garden tool Mechanism Of Injury: Sharp Trauma Onset/Duration: Lasting Hours - 1 hr Severity: Mild Pain Intensity: 4 Pain Scale Used: 0-10 Numeric Aggravating Factors: Other: - touch - Allergies/Home Medications Allergies/Adverse Reactions: Allergies Allergy/AdvReac Type Severity Reaction Status Date / Time sulfamethoxazole Allergy Swelling Verified 09/15/18 20:45 [From Bactrim] trimethoprim [From Bactrim] Allergy Swelling Verified 09/15/18 20:45 PMH/Surg Hx/FS Hx/Imm Hx Previously Healthy: Yes Endocrine History: Hypothyroidism Other History Of: Negative For: HIV - Surgical History Surgical History: None - Family History Known Family History: Positive: Hypertension, Other - No Hx of cancer - Social History Occupation: Employed Full-time Lives: With Family Alcohol Use: Weekly Substance Use Type: None Smoking Status (MU): Never Smoked Tobacco - Immunization History Most Recent Influenza Vaccination: 2016 Most Recent Tetanus Shot: 2 years ago Review of Systems All Other Systems Reviewed And Are Negative: Yes Constitutional: Positive: Negative Skin: Positive: Negative, Other - lceration of left great toe w/ a garden tool, Eyes: Positive: Negative ENT: Positive: Negative Respiratory: Positive: Negative Cardiovascular: Positive: Negative Gastrointestinal: Positive: Negative Genitourinary: Positive: Negative Motor: Positive: Negative Neurovascular: Positive: Negative Musculoskeletal: Positive: Other: - left great toe pain s/p laceration Neurological: Positive: Negative Psychological: Positive: Negative Is Patient Immunocompromised?: No Physical Exam - Summary Physical Exam Summary: Vital Signs Reviewed: Yes General: well developed, well nourished female sitting in the examining table w/ o any apparent distress Eye Exam: Normal Eyes: Positive: Conjunctiva Clear - PERRLA, EOMI, fundi grossly normal ENT: Positive: Normal ENT inspection, Hearing grossly normal, Pharynx normal, TMs normal Neck: Positive: Supple, Nontender, No Lymphadenopathy Respiratory: Positive: Chest non-tender, Lungs clear, Normal breath sounds, No respiratory distress Cardiovascular: Positive: RRR, No Murmur, Pulses Normal, Brisk Capillary Refill Abdomen Description: Positive: Nontender, No Organomegaly, Soft. Negative: CVA Tenderness (R), CVA Tenderness (L) Bowel Sounds: Positive: Present Musculoskeletal: Positive: Strength Intact, ROM Intact, No Edema Neurological: Positive: Alert, Muscle Tone Normal Psychological Exam: Normal Skin: Positive:Medial aspect of left great toe with a linear superficial laceration about 1.8cm in size, bleeding stopped w/ pressure, no foreign body observed. mild tenderness to palpation, no ecchymosis observed. FROM of LF great toe, sensation intact, capillary refill brisk, and pulses WNL. Triage Information Reviewed: Yes Vital Signs: Initial Vital Signs Temp 98.9 F 09/15/18 20:39 Pulse 75 09/15/18 20:39 Resp 12 09/15/18 20:39 BP 128/77 09/15/18 20:39 Pulse Ox 97 09/15/18 20:39 Laceration Repair - Laceration Repair 1 Description: Linear - superficial linear laceration on medial aspect of the left great toe Laceration Size After Repair: Length (cm) - 1.8 Type Injection: Local Anesthesia Used: 1.0% Lido - 2ml digital block Cleansing Completed Via Routine Prep: Yes Irrigation With Pressure Irrigation Device: Yes Closure Material: Sutures - 7 Closure Method: Single Layer Suture Of: Skin, SQ Suture Type: Nylon - 5.0 Laceration Course/Dx - Course/Dx Course Of Treatment: 62 y/o female presents to the urgent care c/o Laceration of medial aspect of her left great toe s/p stepping in a sharp garden tool around 1800 pm. Pt states bleeding stopped w/ pressure. Pain is 4/10 at touch and she can move toe w/o any difficulty. Pt reports last Tetanus vaccine was given in 2015. Pt denies numbness or tingling sensation over the left great toe or foot. Pt denies fever, SOb, chest pain, abdominal pain, N/V/D. Hx obtained. Pt w/ a linear superficial laceration on the medial aspect of left great toe about 1.8 cm in size, FROM of left great toe, mild tenderness on palpation on examination. LACERATION PROCEDURE NOTE: . Copious irrigation was done with saline by the nurse and the wound explored. There was no FB or deep structure injury noted. FROM of left great toe. procedure was explained and consent obtained, Timeout performed. The wound was anesthetized by digital block at the base of great toe with 2 mL of 1% lido with good anesthesia. Sterile drape and prep were done. There were 7 sutures with 5.0 nylon type of suture. The length of the wound after closure was 1.8cm. No debridement done. Pt tolerated the procedure well without adverse effects. Neurovascular intact and FROM of great toe. Pt advised to f/u suture removal in 10-12 days and if any signs of infection develop to immediately return to the urgent care of PCP for further management and treatment. Pt understood and agreed and left the clinic ambulating A&Ox3. - Differential Dx - Laceration/Wound Differental Diagnoses: Abrasion, Cellulitis, Dehiscence, Fracture, Laceration, Puncture Wound - Diagnosis Provider Diagnosis: Laceration of left great toe Discharge - Sign-Out/Discharge Documenting (check all that apply): Patient Departure - d/C home All imaging exams completed and their final reports reviewed: No Studies - Discharge Plan Condition: Stable Disposition: HOME Patient Education Materials: Care For Your Stitches (ED), Laceration (ED) Referrals: Jennifer Vivar MD [Primary Care Provider] - 2 Weeks Additional Instructions: 1-Please apply Bacitrain topical antibiotic over the wound 2X/day x 7 days. Keep wound clean and dry 2- F/u suture removal in 10-12 days w/ your PCP or here at the urgent care. 3-Take Ibuprofen or Tylenol PO q6-8hrs prn for pain or swelling. 4- If you develop fever or redness around your great toe return to the Urgent care or PCP for further management - Billing Disposition and Condition Condition: STABLE Disposition: Home - Attestation Statements Provider Attestation: Per institutional requirements, I have reviewed the chart, however, I was not consulted specifically or made aware of this patient by the midlevel provider. I did not personally evaluate, interact with , or disposition this patient.
[2018-09-15] MEDS ORDERED: Lidocaine 1% MPF* 2 ML VIAL INJ ONE (21:22)
[2018-09-15] MEDS ORDERED: Lidocaine 1% MDV 20 ML INJ ONE (21:42)
[2018-09-15] MEDS ORDERED: Lidocaine 1% MPF ** 5 ML VIAL ONE ×2 (21:47→21:56)
[2018-09-15] MEDS ORDERED: Lidocaine 1% MPF ** 5 ML VIAL INJ ONE (22:00)
== END 2018-09-15 22:34 | disposition home or self-care (01) ==
LOC: UCEAST 20:30
DX: S91.112A Laceration without foreign body of left great toe without damage to nail, initial encounter (principal); W22.8XXA Striking against or struck by other objects, initial encounter; Y92.9 Unspecified place or not applicable; Z88.2 Allergy status to sulfonamides
CPT/HCPCS: 12001; 12041; 99211; G0463

== ENCOUNTER 2018-09-22 07:05 | Emergency (ER) | payer BC ==
[2018-09-22 07:19] VITALS: BP 103/53
--- NOTE | 2018-09-22 07:54 | UC ---
Skin Complaint HPI - HPI Summary HPI Summary: 62-year-old woman comes in with a chief complaint of a rash on the left rich. Started several days ago with a small area of redness now spreading. It is tender to palpation she does not believe is any foreign body in it. She's not sure if it was a spider bite she got it after she was gardening. No blisters. No rash anywhere else. No fevers or chills. The redness is spreading at the site of the initial injury. Patient is also here to get sutures out she had 7 sutures placed in a 1.8 cm laceration of her left great toe on September 15, 2018. No fevers or chills is healing up well. Been bleeding no drainage. - History of Current Complaint Chief Complaint: UCSkin Time Seen by Provider: 09/22/18 07:43 Stated Complaint: LT LEG Hx Last Menstrual Period: post menopausal Pain Intensity: 7 - Allergy/Home Medications Allergies/Adverse Reactions: Allergies Allergy/AdvReac Type Severity Reaction Status Date / Time sulfamethoxazole Allergy Swelling Verified 09/22/18 07:19 [From Bactrim] trimethoprim [From Bactrim] Allergy Swelling Verified 09/22/18 07:19 PMH/Surg Hx/FS Hx/Imm Hx Previously Healthy: Yes - DENIES HX MRSA Endocrine History: Hypothyroidism Other History Of: Negative For: HIV - Surgical History Surgical History: None - Family History Known Family History: Positive: Hypertension, Other - No Hx of cancer - Social History Alcohol Use: Weekly Substance Use Type: None Smoking Status (MU): Never Smoked Tobacco - Immunization History Most Recent Influenza Vaccination: 2016 Most Recent Tetanus Shot: 2 years ago Review of Systems All Other Systems Reviewed And Are Negative: Yes Skin: Positive: Other - SEE HPI Eyes: Positive: Negative ENT: Positive: Negative Respiratory: Positive: Negative Cardiovascular: Positive: Negative Gastrointestinal: Positive: Negative Motor: Positive: Negative Neurovascular: Positive: Negative Musculoskeletal: Positive: Negative Neurological: Positive: Negative Psychological: Positive: Negative Is Patient Immunocompromised?: No Physical Exam Triage Information Reviewed: Yes Appearance: Well-Appearing, No Pain Distress, Well-Nourished Vital Signs: Initial Vital Signs Temp 99.5 F 09/22/18 07:14 Pulse 86 09/22/18 07:14 Resp 18 09/22/18 07:14 BP 103/53 09/22/18 07:14 Pulse Ox 98 09/22/18 07:14 Vital Signs Reviewed: Yes Eye Exam: Normal Eyes: Positive: Conjunctiva Clear Neck: Positive: Supple Respiratory: Positive: No respiratory distress Musculoskeletal Exam: Normal Musculoskeletal: Positive: Strength Intact, ROM Intact Neurological Exam: Normal Neurological: Positive: Alert, Muscle Tone Normal Psychological Exam: Normal Psychological: Positive: Age Appropriate Behavior Skin: Positive: Other - Left great toe has a healing 1.8 cm laceration on the medial aspect. I removed 7 sutures. No erythema no drainage. The wound is closed. On the left anterior lower leg there is an area of erythema that's 8 cm in diameter. It does deana. It's darker in the middle of this there is no ulceration there is no vesicles. No streaking. No drainage. Course/Dx - Course Course Of Treatment: Sutures were removed today from the left great toe is wound is healing well we discussed continuing care of the laceration. Going to treat the left leg for cellulitis it's unsure if it was originally an insect bite or not. At this time there is no vesicles and there isproviding other sites which would be more concerning for a contact dermatitis. We will be treating for cellulitis patient knows that if she gets worse she needs to go the emergency department further evaluation and care. - Diagnoses Provider Diagnosis: Encounter for removal of sutures, Cellulitis of left anterior lower leg Discharge - Sign-Out/Discharge Documenting (check all that apply): Patient Departure All imaging exams completed and their final reports reviewed: No Studies - Discharge Plan Condition: Stable Disposition: HOME Prescriptions: Cephalexin CAP* [Keflex CAP*] 500 mg PO QID #40 cap Patient Education Materials: Cellulitis (ED), Stitches Removal (ED) Referrals: Jennifer Vivar MD [Primary Care Provider] - Additional Instructions: FOLLOW UP WITH YOUR DOCTOR IF NOT COMPLETELY IMPROVED. GET RECHECKED SOONER IF YOUR CONDITION WORSENS; PAIN, FEVER, SPREAD OF INFECTION , YOU FEEL ILL OR ANY QUESTIONS OR CONCERNS. - Billing Disposition and Condition Condition: STABLE Disposition: Home
== END 2018-09-22 08:00 | disposition home or self-care (01) ==
LOC: UCEAST 07:05
DX: Z48.02 Encounter for removal of sutures (principal); L03.116 Cellulitis of left lower limb; Z88.1 Allergy status to other antibiotic agents
CPT/HCPCS: 99212; G0463

== ENCOUNTER 2018-09-23 13:42 | Emergency (ER) | payer BC ==
[2018-09-23 15:46] LABS: Urine Appearance Cloudy; Urine Bilirubin Negative (Negative); Urine Blood Negative (Negative); Urine Color Yellow; Urine Glucose 1+(50 mg/dL) (Negative); Urine Ketones Negative (Negative); Urine Nitrite Negative (Negative); Urine Protein Negative (Negative); Urine Specific Gravity 1.009 (1.010-1.030); Urine Urobilinogen Negative (Negative)
[2018-09-23] MEDS ORDERED: NS 0.9% 1000 ML** 1,000 ML IV.FLUID IV ONE (16:39)
[2018-09-23] MEDS ORDERED: ceFAZolin 1 GM ADVAN(*) 1 GM in NS 0.9% 50 ML* 50 ML IVPB ONE (16:39)
[2018-09-23] MEDS ORDERED: Clindamycin 600 MG IVPREMIX(* 600 MG/50 ML SDV IV ONE (16:39)
--- NOTE | 2018-09-23 16:45 | ED ---
Skin Complaint - HPI Summary HPI Summary: 62 year old F presenting to [facility] with a chief complaint of worsening wound on the left rich since 4 days ago. The patient rates the pain 4/10 in severity. Symptoms aggravated by nothing. Symptoms alleviated by nothing. Patient reports erythema, swelling, and chills. Patient states that 4 days ago, her left rich was scratched by something and her wound looked like a pin prick. She put some tanning cream on it. 2 days ago, the wound progressed into a rash. Patient was seen at [facility] yesterday and prescribed Keflex. - History of Current Complaint Chief Complaint: EDRashSkinAbscess Time Seen by Provider: 09/23/18 16:39 Stated Complaint: STAFF INF ON LEFT LEG PER PT Hx Obtained From: Patient Hx Last Menstrual Period: post menopausal Onset/Duration: Started Days Ago - 4, Still Present Skin Exposure Onset/Duration: Days Ago - 4 Timing: Constant Current Severity: Moderate Pain Intensity: 4 Pain Scale Used: 0-10 Numeric Skin Location: Leg - left rich Aggravating Symptom(s): Nothing Alleviating Symptom(s): Nothing - Allergy/Home Medications Allergies/Adverse Reactions: Allergies Allergy/AdvReac Type Severity Reaction Status Date / Time sulfamethoxazole Allergy Swelling Verified 09/23/18 13:48 [From Bactrim] trimethoprim [From Bactrim] Allergy Swelling Verified 09/23/18 13:48 PMH/Surg Hx/FS Hx/Imm Hx Previously Healthy: No Endocrine/Hematology History: Reports: Hx Thyroid Disease Denies: Hx Diabetes Cardiovascular History: Denies: Hx Hypertension Respiratory History: Denies: Hx Asthma, Hx Chronic Obstructive Pulmonary Disease (COPD) GI History: Reports: Other GI Disorders - polyps Denies: Hx Ulcer Musculoskeletal History: Denies: Hx Osteoporosis - Cancer History Hx Chemotherapy: No Hx Radiation Therapy: No - Surgical History Surgery Procedure, Year, and Place: colonscopy Infectious Disease History: No Infectious Disease History: Denies: Hx Clostridium Difficile, Hx Hepatitis, Hx Human Immunodeficiency Virus (HIV), Hx of Known/Suspected MRSA, Hx Shingles, Hx Tuberculosis, History Other Infectious Disease, Traveled Outside the [place] in Last 30 Days - Family History Known Family History: Positive: Hypertension, Other - No Hx of cancer - Social History Alcohol Use: Weekly Hx Substance Use: No Substance Use Type: Reports: None Hx Tobacco Use: No Smoking Status (MU): Never Smoked Tobacco Review of Systems Positive: Chills Positive: Other - wound on left rich, erythema, swelling All Other Systems Reviewed And Are Negative: Yes Physical Exam - Summary Physical Exam Summary: VITAL SIGNS: Reviewed. GENERAL: Patient is a well-developed and nourished FEMALE who is lying comfortable in the stretcher. Patient is not in any acute respiratory distress. HEAD AND FACE: No signs of trauma. No ecchymosis, hematomas or skull depressions. No sinus tenderness. EYES: PERRLA, EOMI x 2, No injected conjunctiva, no nystagmus. EARS: Hearing grossly intact. Ear canals and tympanic membranes are within normal limits. MOUTH: Oropharynx within normal limits. NECK: Supple, trachea is midline, no adenopathy, no JVD, no carotid bruit, no c- spine tenderness, neck with full ROM. CHEST: Symmetric, no tenderness at palpation LUNGS: Clear to auscultation bilaterally. No wheezing or crackles. CVS: Regular rate and rhythm, S1 and S2 present, no murmurs or gallops appreciated. ABDOMEN: Soft, non-tender. No signs of distention. No rebound no guarding, and no masses palpated. Bowel sounds are normal. EXTREMITIES: FROM in all major joints, no edema, no cyanosis or clubbing. NEURO: Alert and oriented x 3. No acute neurological deficits. Speech is normal and follows commands. SKIN: Patient has an increasing wound that is 7 cm by 5 cm on her left rich that is swelling and tender Triage Information Reviewed: Yes Vital Signs On Initial Exam: Initial Vitals Temp Pulse Resp BP Pulse Ox 100 F 93 16 137/85 98 09/23/18 13:45 09/23/18 13:45 09/23/18 13:45 09/23/18 13:45 09/23/18 13:45 Vital Signs Reviewed: Yes Diagnostics - Vital Signs Vital Signs Temp Pulse Resp BP Pulse Ox 09/23/18 15:27 100 F 98 16 98/80 94 09/23/18 13:45 100 F 93 16 137/85 98 - Laboratory Lab Results: Lab Results 09/23/18 Range/Units 15:26 Urine Color Yellow Urine Appearance Cloudy Urine pH 5.0 (5-9) Ur Specific Pinon 1.009 L (1.010-1.030) Urine Protein Negative (Negative) Urine Ketones Negative (Negative) Urine Blood Negative (Negative) Urine Nitrate Negative (Negative) Urine Bilirubin Negative (Negative) Urine Urobilinogen Negative (Negative) Ur Leukocyte Esterase Negative (Negative) Urine Glucose 1+(50 mg/dl) A (Negative) Urine Ascorbic Acid * A (Negative) Result Diagrams: 09/23/18 16:51 09/23/18 16:51 Lab Statement: Any lab studies that have been ordered have been reviewed, and results considered in the medical decision making process. Course/Dx - Course Assessment/Plan: 62 year old F presenting to [facility] with a chief complaint of worsening wound on the left rich since 4 days ago. The patient rates the pain 4/ 10 in severity. Symptoms aggravated by nothing. Symptoms alleviated by nothing. Patient reports erythema, swelling, and chills. Patient states that 4 days ago, her left rich was scratched by something and her wound looked like a pin prick. She put some tanning cream on it. 2 days ago, the wound progressed into a rash. Patient was seen at [facility] yesterday and prescribed Keflex. Blood work without any significant abnormality except for glucose of 128, CRP is 55.5. In the ED course the patient was given IV fluids, the patient was started with clindamycin and symptoms only for this infection. The patient was started on Keflex yesterday and she has taken only 2 tablets total. Therefore I believe that the patient can be discharged home and follow up with primary care physician tomorrow. We marked the erythema and we instructed the patient to return to the ED if the erythema surpasses the burton. At this time I believe she did not give enough time for the antibiotics to work. She will continue taking the Keflex. I discussed all the findings and test results with the patient. Patient was instructed to return to the emergency room immediately if any of the symptoms return or worsen. Plan of care was discussed with the patient and she understands and agrees. All questions were answered at patient satisfaction. There were no further complaints or concerns. Lung exam before discharge: CTA B/L. Good air exchange. No wheezing or crackles heard. CVS: S1 and S2 present. No murmurs appreciated. Patient is alert and oriented x 3. Patient is hemodynamically stable. Patient will be discharged home with follow up PCP in the next 2-3 days - Diagnoses Provider Diagnoses: Cellulitis Discharge - Sign-Out/Discharge Documenting (check all that apply): Patient Departure - Discharge Patient Received Moderate/Deep Sedation with Procedure: No - Discharge Plan Condition: Stable Disposition: HOME Patient Education Materials: Cellulitis (ED) Referrals: Jennifer Vivar MD [Primary Care Provider] - 3 Days Additional Instructions: Follow up with your primary care provider in 3 days. Return to the Emergency Department for new or worsening symptoms. - Billing Disposition and Condition Condition: STABLE Disposition: Home - Attestation Statements Document Initiated by Scribe: Yes Documenting Scribe: Nan William Provider For Whom Jona is Documenting (Include Credential): Jason Michel MD Scribe Attestation: Nan Brown, scribed for Jason Michel MD on 09/24/18 at 2118. Scribe Documentation Reviewed: Yes Provider Attestation: The documentation as recorded by the scribeNan accurately reflects the service I personally performed and the decisions made by me, Jason Michel MD Status of Scribe Document: Viewed
[2018-09-23 17:00] LABS: ABS Monocytes 0.8 10^3/ul (0-0.8); ABS Neutrophils 6.7 10^3/ul (1.5-7.7); Eosinophil % 0.1 %; Hematocrit 37 % (35-47); Hemoglobin 12.9 g/dL (12.0-16.0); Mean Corpuscular HGB Conc 35 g/dL (31-36); Mean Corpuscular Hemoglobin 32 pg (27-31); Mean Corpuscular Volume 92 fL (80-97); Mean Platelet Volume 10.4 fL (7.4-10.4); Platelet Count 205 10^3/uL (150-450); Red Blood Count 4.05 10^6 /uL (3.70-4.87); Red Cell Distribution Width 13 % (10-15); White Blood Count 8.5 10^3/uL (3.5-10.8)
[2018-09-23 17:19] LABS: Albumin 4.1 g/dL (3.2-5.2); Albumin/Globulin Ratio 1.3 (1-3); C Reactive Protein 55.58 mg/L (<8.01); Calcium 9.6 mg/dL (8.6-10.3); EGFR Non-African American 97.5 (>60); Globulin 3.1 g/dL (2-4); Total Bilirubin 0.5 mg/dL (0.2-1.0); Total Protein 7.2 g/dL (6.4-8.9)
[2018-09-23 18:30] VITALS: BP 117/69
[2018-09-23 18:32] LABS: Erythrocyte Sed Rate 26 mm/Hr (0-29)
== END 2018-09-23 18:29 | disposition home or self-care (01) ==
LOC: ED 13:42
DX: L03.116 Cellulitis of left lower limb (principal); Z88.1 Allergy status to other antibiotic agents; Z88.2 Allergy status to sulfonamides
CPT/HCPCS: 36415; 80053; 81003; 82550; 83605; 84484; 85025; 85652; 85730; 86140; 87040; 96361; 96365; 96375; 99282; J0690

== ENCOUNTER 2018-09-26 10:48 | Emergency (ER) | payer BC ==
--- NOTE | 2018-09-26 13:28 | UC ---
Skin Complaint HPI - HPI Summary HPI Summary: 62 YO FEMALE sustained a scratch or PW to her left rich about a week ago Came in 09/22 and was started on keflex for cellulitis 09/23 had fever/chills and increased pain. Was given IV antibiotics and was sent home on keflex pain has decreased but redness has spread no WAN no mylagias no n/v - History of Current Complaint Chief Complaint: UCSkin Time Seen by Provider: 09/26/18 13:02 Stated Complaint: LEG SWELLING AND PAIN Hx Obtained From: Patient Hx Last Menstrual Period: post menopausal Onset/Duration: Sudden Onset Skin Exposure Onset/Duration: Days Ago Onset Severity: Mild Current Severity: Mild Pain Intensity: 2 Pain Scale Used: 0-10 Numeric Location: Other - left rich Aggravating Factor(s): Nothing Alleviating Factor(s): Nothing Associated Signs & Symptoms: Positive: Tenderness. Negative: Nausea, Vomiting, Numbness, Thirst, Diaphoresis, Weakness, Pallor, Shivering, Difficulty Breathing , Fever, Chills, Cough, Wheezing, Chest Pain, Hoarseness, Throat Tightening, Abdominal Pain, Lightheadedness, Syncope, Drainage, Bruising, Red Streaks, Joint Swelling - Allergy/Home Medications Allergies/Adverse Reactions: Allergies Allergy/AdvReac Type Severity Reaction Status Date / Time sulfamethoxazole Allergy Swelling Verified 09/26/18 11:10 [From Bactrim] trimethoprim [From Bactrim] Allergy Swelling Verified 09/26/18 11:10 Home Medications: Home Medications Cephalexin CAP* [Keflex CAP*] 500 mg PO Q6HR 09/26/18 [History Confirmed ] Estrogens, Conjugated [Premarin] 1 tab PO DAILY 09/26/18 [History Confirmed 08/10] Ibuprofen 400 mg PO ONCE PRN 09/26/18 [History Confirmed 09/26/18] Methylphenidate HCl [Metadate ER] 1 tab PO DAILY 09/26/18 [History Confirmed 08/10] PMH/Surg Hx/FS Hx/Imm Hx Previously Healthy: Yes Endocrine History: Thyroid Disease Other History Of: Negative For: HIV - Surgical History Surgical History: Yes Surgery Procedure, Year, and Place: colonscopy - Family History Known Family History: Positive: Hypertension, Other - No Hx of cancer - Social History Alcohol Use: Weekly Substance Use Type: None Smoking Status (MU): Never Smoked Tobacco - Immunization History Most Recent Influenza Vaccination: 2016 Most Recent Tetanus Shot: 2 years ago Review of Systems All Other Systems Reviewed And Are Negative: Yes Constitutional: Positive: Negative Skin: Positive: Negative Eyes: Positive: Negative ENT: Positive: Negative Respiratory: Positive: Negative Cardiovascular: Positive: Negative Gastrointestinal: Positive: Negative Genitourinary: Positive: Negative Motor: Positive: Negative Neurovascular: Positive: Negative Musculoskeletal: Positive: Negative Neurological: Positive: Negative Psychological: Positive: Negative Physical Exam Vital Signs: Initial Vital Signs Temp 99.6 F 09/26/18 11:05 Pulse 80 09/26/18 11:05 Resp 16 09/26/18 11:05 BP 108/64 09/26/18 11:05 Pulse Ox 98 09/26/18 11:05 Images Front/Back of Body, Lg ([place]): 1 - eschar 2 - redness anteriorly down to ankle Course/Dx - Course Course Of Treatment: concern re MRSA culture obtain from purluent d/c surrounding eschar - Diagnoses Provider Diagnosis: Cellulitis of left leg Discharge - Sign-Out/Discharge Documenting (check all that apply): Patient Departure All imaging exams completed and their final reports reviewed: No Studies - Discharge Plan Condition: Stable Disposition: HOME Prescriptions: DOXYcycline CAP(*) [DOXYcycline 100MG CAP(*)] 100 mg PO BID #14 cap Patient Education Materials: Cellulitis (ED) Referrals: Jennifer Vivar MD [Primary Care Provider] - 3 Days Additional Instructions: a culture of your skin wound is pending take the doxy and keflex when culture results are back we should be able to just keep you on one antibiotic ELEVATE ELEVATE ELEVATE warm soapy compresses at least twice daily TO ER FOR FEVER /INCREASED PAIN/VOMITING OR IF NOT NOTING IMPROVEMENT WITHIN 48 HOURS - Billing Disposition and Condition Condition: STABLE Disposition: Home
[2018-09-26 13:53] VITALS: BP 133/74
== END 2018-09-26 13:53 | disposition home or self-care (01) ==
LOC: UCEAST 10:48
DX: L03.116 Cellulitis of left lower limb (principal); Z88.1 Allergy status to other antibiotic agents
CPT/HCPCS: 87070; 87205; 99212; G0463

== ENCOUNTER 2019-02-08 07:53 | Emergency (ER) | payer BC ==
--- OUTSIDE RECORDS SUMMARY | 2019-02-08 07:58 | XMS REPORT | Continuity of Care Document ---
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 Onset: 10/28/2014 Social History Type Date Description Comments Sex Unknown Tobacco Use Start: Unknown End: Former Cigarette Smoker smoked for a couple Unknown of years in [facility] then quit ETOH Use Drinks Alcoholic only on weekends - Beverages Occasionally 2-3 per weekend day Recreational Drug Use THC tincture Tobacco Use Start: Unknown End: Patient is a former Unknown smoker Smoking Status Reviewed: 12/22/18 Patient is a former smoker Exercise Type/Frequency walks 97007 steps planks Allergies, Adverse Reactions, Alerts Active Allergies Reaction Severity Comments Date Sulfa Antibiotics rash 10/23/2012 Bactrim hives 11/04/2014 Inactive Allergies No Known Drug Allergy 01/11/2010 Medications Active Medications SIG Qnty Indications Ordering Date Provider Perrin Thyroid Take one tab po 30tabs Malu Cobb, N.P. 06/16/2018 60mg Tablets daily Biest/Progesterone 1mg/30mg per 30grams Wilda 06/15/2018 Cream gram 1/2 gram ARVIN Rocha bid Methylphenidate take 1 capsule 30caps Juanjose Hollingsworth NP 02/18/2018 Hydrochloride ER by mouth every 20mg day as needed Capsules ER -- maximum daily dose of 1 per day Bio Identical Hormones once a day Nereyda Evans, 09/22/2014 M.D. Vitamin C TR once a day Unknown 500mg Tablets ER History Medications Doxycycline Hyclate 1 tablet twice a 6tabs L03.116 Nereyda Evans, 2018 - day x 3 more days M.D. 10/02/2018 100mg Tablets Cephalexin 4 tabs daily - Unknown 09/22/2018 - 500mg 10/02/2018 Capsules Mandibular Please fabricate G47.33 Rosalia 07/01/2018 - Advancement Device mandibular advance GWYN Santiago 12/14/2018 device for mild Device sleep apnea Tetanus,Unspecified Unknown Injection Immunizations CPT Code Status Date Vaccine Lot # [id number] Given 09/29/2018 Tetanus And Diptheria (Td) For Adult Use [id number] Preservative Free [id number] Given 10/17/2012 Tdap - Tetanus/Diptheria/Acellular Pertussis [id number] Given 10/17/2012 Tdap - Tetanus/Diptheria/Acellular Pertussis [id number] Vital Signs Date Vital Result Comment 12/22/2018 3:28pm Height 63.25 inches 5'3.25" Weight 132.38 lb Heart Rate 64 /min BP Systolic 114 mmHg BP Diastolic 71 mmHg Body Temperature 98.5 F O2 % BldC Oximetry 99 % BMI (Body Mass Index) 23.3 kg/m2 09/29/2018 2:33pm Height 63.25 inches 5'3.25" Weight 131.38 lb Heart Rate 75 /min BP Systolic Sitting 126 mmHg BP Diastolic Sitting 77 mmHg O2 % BldC Oximetry 97 % BMI (Body Mass Index) 23.1 kg/m2 Results Test Date Facility Test Result H/L Range Note Wound 09/26/2018 [facility] Wound/Misc SEE RESULT 1, 2 Culture/Sensi [address] [place] [address] Stain [phone] Laboratory test 09/23/2018 [facility] Partial 31.6 seconds Normal 26.0-38.[address] [place] [address] PTT [phone] Comp Metabolic 09/23/2018 [facility] Sodium 139 mmol/L Normal 135-[address] [place], [place] [address] [phone] Potassium 4.0 mmol/L Normal 3.5-5.0 Chloride 104 mmol/L Normal 101-111 Co2 Carbon Dioxide 29 mmol/L Normal 22-32 Anion Gap 6 mmol/L Normal 2-11 Glucose 128 mg/dL High 70-100 Blood Urea Nitrogen 13 mg/dL Normal 6-24 Creatinine 0.62 mg/dL Normal 0.51-0.95 BUN/Creatinine Ratio 21.0 High 8-20 Calcium 9.6 mg/dL Normal 8.6-10.3 Total Protein 7.2 g/dL Normal 6.4-8.9 Albumin 4.1 g/dL Normal 3.2-5.2 Globulin 3.1 g/dL Normal 2-4 Albumin/Globulin Ratio 1.3 Normal 1-3 Total Bilirubin 0.50 mg/dL Normal 0.2-1.0 Alkaline Phosphatase 49 U/L Normal 34-104 Alt 15 U/L Normal 7-52 Ast 16 U/L Normal 13-39 Egfr Non- 97.5 >60 Egfr 118.0 >60 3 Laboratory test 09/23/2018 [facility] Creatine 53 U/L Normal 10-[address] Kinase(CK) [place] [address] [phone] C Reactive Protein 55.58 mg/L High <8.01 Troponin-I (TnI) 0.00 ng/mL <0.04 4 Laboratory test 09/23/2018 [facility] Blood Culture SEE RESULT [address] [place] [address] [phone] Urinalysis Profile 09/23/2018 [facility] Urine Color Yellow [address] [place] [address] [phone] Urine Appearance Cloudy Urine Specific [place] 1.009 Low 1.010-1.030 Urine pH 5.0 Normal 5-9 Urine Urobilinogen Negative Negative Urine Ketones Negative Negative Urine Protein Negative Negative Urine Leukocytes Negative Negative Urine Blood Negative Negative * * Abnormal Negative 6 Urine Nitrite Negative Negative Urine Bilirubin Negative Negative Urine Glucose 1+(50 mg/dL) Abnormal Negative Laboratory test 09/23/2018 [facility] Lactic Acid 0.9 mmol/L Normal 0.5-2.0 [address] [place] [address] [phone] CBC Auto Diff 09/23/2018 [facility] White Blood 8.5 10^3/uL Normal 3.5-10.[address] [place] [address] [phone] Red Blood Count 4.05 10^6/uL Normal 3.70-4.87 Hemoglobin 12.9 g/dL Normal 12.0-16.0 Hematocrit 37 % Normal 35-47 Mean Corpuscular Volume 92 fL Normal 80-97 Mean Corpuscular Hemoglobin 32 pg High 27-31 Mean Corpuscular HGB Conc 35 g/dL Normal 31-36 Red Cell Distribution Width 13 % Normal 10-15 Platelet Count 205 10^3/uL Normal 150-450 Mean Platelet Volume 10.4 fL Normal 7.4-10.4 Abs Neutrophils 6.7 10^3/uL Normal 1.5-7.7 Abs Lymphocytes 1.0 10^3/uL Normal 1.0-4.8 Abs Monocytes 0.8 10^3/uL Normal 0-0.8 Abs Eosinophils 0.0 10^3/uL Normal 0-0.6 Abs Basophils 0.0 10^3/uL Normal 0-0.2 Abs Nucleated RBC 0.0 10^3/uL Granulocyte % 77.9 % Lymphocyte % 12.0 % Monocyte % 9.6 % Eosinophil % 0.1 % Basophil % 0.4 % Nucleated Red Blood Cells % 0.0 Laboratory test 09/23/2018 [facility] Erythrocyte Sed 26 mm/Hr Normal 0-[address] [place] [address] [phone] Laboratory test 08/26/2018 [facility] TSH (Thyroid 2.40 Normal 0.34-5.[address] Stim Horm) mcIU/mL 0 [place] [address] [phone] T3 Total 127 ng/dL Normal 87-178 Free T4 (Free Thyroxine) 0.66 ng/dL Normal 0.61-1.12 Poc Urinalysis 08/15/2018 [facility] Poc Glucose, Negative Negative [address] [place] [address] [phone] Poc Bilirubin, Urine Negative Negative Poc Ketone, Urine Negative Negative Poc Specific [place], Urine 1.010 Normal 1.010-1.030 Poc Blood, Urine Negative Negative Poc pH, Urine 6.0 Normal 5-9 Poc Protein, Urine Negative Negative Poc Urobilinogen, Urine 0.2 Negative Poc Nitrite, Urine Negative Negative Poc Leukocytes, Urine Trace Abnormal Negative Poc Color, Urine Yellow Poc Clarity, Urine Clear 8 Urine Culture 08/15/2018 [facility] Urine Culture SEE RESULT 9, [address] [place] [address] [phone] Laboratory test 08/15/2018 [facility] Trichomonas Negative Negative 11, finding [address] Vaginalis Rna 12 [place] [address] [phone] GC/Chlamydia 08/15/2018 [facility] Chlamydia Negative Negative Amplified Rna [address] [place] [address] Rna [phone] Neisseria gonorrhoeae (GC) Rna Negative Negative Laboratory test 08/15/2018 [facility] Gardnerella/Yeast: SEE RESULT [address] [place] [address] [phone] Ureaplasma 08/15/2018 [facility] Ureaplasma Source URINE [address] [place] [address] [phone] Ureaplasma urealyticum PCR Negative 14 Ureaplasma parvum PCR Negative 15 Mycoplasma Hominis 08/15/2018 [facility] Mycoplasma hominis URINE PCR [address] [place] [address] [phone] Mycoplasma hominis Result Negative 16 Urine Culture And 08/08/2018 [facility] Urine SEE RESULT 17 , [address] [address] [phone] Poc Urinalysis 08/08/2018 [facility] Poc Negative Negative [address] Glucose, [place] [address] Urine [phone] Poc Bilirubin, Urine Negative Negative Poc Ketone, Urine Negative Negative Poc Specific [place], Urine <= 1.005 Low 1.010-1.030 Poc Blood, Urine Negative Negative Poc pH, Urine 6.5 Normal 5-9 Poc Protein, Urine Negative Negative Poc Urobilinogen, Urine 0.2 Negative Poc Nitrite, Urine Negative Negative Poc Leukocytes, Urine Negative Negative Poc Color, Urine Yellow Poc Clarity, Urine Clear 19 Urine Culture And 07/29/2018 [facility] Urine SEE RESULT 20 , [address] Culture BELOW [place], [place] [address] [phone] Poc Urinalysis 07/29/2018 [facility] Poc Negative Negative [address] Glucose, [place] [address] Urine [phone] Poc Bilirubin, Urine Negative Negative Poc Ketone, Urine Negative Negative Poc Specific [place], Urine 1.015 Normal 1.010-1.030 Poc Blood, Urine Negative Negative Poc pH, Urine 6.0 Normal 5-9 Poc Protein, Urine Negative Negative Poc Urobilinogen, Urine 0.2 Negative Poc Nitrite, Urine Negative Negative Poc Leukocytes, Urine Trace Abnormal Negative Poc Color, Urine Yellow Poc Clarity, Urine Clear 22 1 [id number] 2 SEE RESULT BELOW Name: SKY DAVILA : [address]: Jagdish Craft MD Acct: [id number] Unit: [id number] AGE: 62 Location: [facility] Re09/26/18 SEX: F Status: DEP ER SPEC: [id number] JEFF: 09/26/18 [facility] DR: Jagdish Craft MD REQ: [id number] RECD: 09/26/18 STATUS: PRISCILLA JON DR: Jennifer Vivar MD _ SOURCE: LEG,LEFT SPDESC: ORDERED: Culture Stain COMMENTS: [id number] Procedure Result Reported Site Wound/Misc Gram Stain Final 09/26/18- 1732 ML 3+ Epithelial Cells No Neutrophils Observed No Organisms Seen Wound/Misc Culture Final 09/28/18- 806 ML No Growth Day 2 * ML - Main Lab . END OF REPORT DEPARTMENT OF PATHOLOGY, [address] [place] [address] Geoff Bello M.D. Director [facility] # [id number] 3 Because ethnic data is not always readily available, this report includes an eGFR for both -Americans and non- Americans. The National Kidney Disease Education Program (NKDEP) does not endorse the use of the MDRD equation for patients that are not between the ages of 18 and 70, are , have extremes of body size, muscle mass, or nutritional status, or are non- or non-. According to the National Kidney Foundation, irrespective of diagnosis, the stage of the disease is based on the level of kidney function: Stage Description GFR(mL/min/1.73 m(2)) 1 Kidney damage with normal or decreased GFR 90 2 Kidney damage with mild decrease in GFR 60-89 3 Moderate decrease in GFR 30-59 4 Severe decrease in GFR 15-29 5 Kidney failure <15 (or dialysis) 4 Troponin-I testing on Plasma Separator Tubes (PST) has a known false positive rate of 0.20-0.40%. All positive troponins reflex immediately to secondary confirmatory testing. Using the MediVision DxI 800 Access Immunoassay systems, the 99th percentile upper reference limit was demonstrated to be < 0.03 ng/mL. 5 SEE RESULT BELOW Name: SKY DAVILA : [address]: Jason Michel MD Acct: [id number] Unit: [id number] AGE: 62 Location: ED Re09/23/18 SEX: F Status: DEP ER SPEC: [id number] JEFF: 09/23/18 [facility] DR: Jason Michel MD REQ: [id number] RECD: 09/23/18 STATUS: PRISCILLA JON DR: Jennifer Vivar MD _ SOURCE: BLOOD,VENO SPDES: ORDERED: Blood Cult Procedure Result Reported Site Aerobic Culture Bottle Final 09/28/18- 1653 ML No Growth Day 5 Anaerobic Culture Bottle Final 09/28/18- 1653 ML No Growth Day 5 * ML - Main Lab . END OF REPORT DEPARTMENT OF PATHOLOGY, [address] [place] [address] Geoff Bello M.D. Director [facility] # [id number] 6 *Ascorbic acid is present which may interfere with detection of blood. 7 [facility] Severe Sepsis and Septic Shock Management Bundle Measure requires all lactic acids initially measuring >2.0 mmol/L be repeated. 8 Script Coordinator: [id number] 10 SEE RESULT BELOW Name: SKY DAVILA : [address]: Jennifer Reed MD Acct: [id number] Unit: [id number] AGE: 62 Location: [facility] Re08/15/18 SEX: F Status: DEP ER SPEC: [id number] JEFF: 08/15/18-1336 [facility] DR: Jennifer Reed MD REQ: [id number] RECD: 08/15/18 STATUS: PRISCILLA JON DR: Jennifer Vivar MD _ SOURCE: URINE SPDESC: ORDERED: Urine Culture COMMENTS: [id number] Procedure Result Reported Site Urine Culture Final 08/16/18- 1256 ML No Growth (<1,000 CFU/mL) * ML - Main Lab . END OF REPORT DEPARTMENT OF PATHOLOGY, [address] [place] [address] Geoff Bello M.D. Director [facility] # [id number] 11 Would you like to order Trichomonas Vaginalis RNA testing? Y 12 [id number] GC/Chlamydia Source?: Endocervical Trichomonas Source: Endocervical 13 SEE RESULT BELOW Name: SKY DAVILA : [address]: Jennifer Reed MD Acct: [id number] Unit: [id number] AGE: 62 Location: [facility] Re08/15/18 SEX: F Status: DEP ER SPEC: [id number] JEFF: 08/15/18-1422 [facility] DR: Jennifer Reed MD REQ: [id number] RECD: 08/15/18 STATUS: PRISCILLA JON DR: Jennifer Vivar MD _ SOURCE: VAGINAL SPDESC: ORDERED: Isamar,Yeast DNA COMMENTS: Would you like to order Trichomonas Vaginalis RNA testing? Y QUERIES: Would you like to order Trichomonas Vaginalis testing? Yes Procedure Result Reported Site Gardnerella/Yeast: Vaginal DNA Final 08/16/18- 1142 ML Organism 1 Negative Gardnerella Organism 2 Negative Jessica The presence of G. vaginalis, although suggestive, is not diagnostic for bacterial vaginosis. Results should be interpreted in conjuction with other clinical and laboratory data available. Women with vaginal discharge should be evaluated for risk factors of cervicitis and pelvic inflammatory disease, toxic shock syndrome (S.aureus), and if present, evaluated for organisms not included in this assay such as N. gonorrhoeae, C. trachomatis, Mobiluncus, Mycoplasma and/or Prevotella. Mixed infections may occur. The performance of this test on patient specimens collected during or immediately after antimicrobial therapy is unknown. The presence or absence of Jessica species, or G. vaginalis cannot be used as a test for therapeutic success or failure. * - [facility] . END OF REPORT DEPARTMENT OF PATHOLOGY, [address] [place] [address] Geoff Bello M.D. Director [facility] # [id number] 14 REFERENCE VALUE Not Applicable 15 REFERENCE VALUE Not Applicable ADDITIONAL INFORMATION This test was developed and its performance characteristics determined by [facility] in a manner consistent with CLIA requirements. This test has not been cleared or approved by the U.S. Food and Drug Administration. Test Performed by: [facility] - [address] [address] 16 REFERENCE VALUE Not Applicable ADDITIONAL INFORMATION This test was developed and its performance characteristics determined by [facility] in a manner consistent with CLIA requirements. This test has not been cleared or approved by the U.S. Food and Drug Administration. Test Performed by: [facility] - [address] [address] 17 [id number] 18 SEE RESULT BELOW Name: SKY DAVILA : [address]: Jason Michel MD Acct: [id number] Unit: [id number] AGE: 62 Location: [facility] Re08/08/18 SEX: F Status: DEP ER SPEC: [id number] JEFF: 08/08/181204 [facility] DR: Jason Michel MD REQ: [id number] RECD: 08/08/189 STATUS: PRISCILLA JON DR: Jennifer Vivar MD _ SOURCE: URINE SPDESC: ORDERED: Urine Culture COMMENTS: [id number] Procedure Result Reported Site Urine Culture Final 08/10/18 6421 ML No growth of clinically significant organisms * ML - Main Lab . END OF REPORT DEPARTMENT OF PATHOLOGY, [address] [place] [address] Geoff Bello M.D. Director [facility] # [id number] 19 Script Coordinator: [id number] 21 SEE RESULT BELOW Name: SKY DAVILA : [address]: Dinora Arenas MD Acct: [id number] Unit: [id number] AGE: 62 Location: [facility] Re07/29/18 SEX: F Status: DEP ER SPEC: [id number] JEFF: 07/29/[address]: Lenin SHERIDAN REQ: [id number] RECD: 07/29/18 STATUS: PRISCILLA JON DR: Jennifer Arenas MD _ SOURCE: URINE SPDESC: ORDERED: Urine Culture COMMENTS: [id number] Procedure Result Reported Site Urine Culture Final 07/31/18- 0823 ML Organism 1 ESCHERICHIA COLI [place] Count 25-50,000 (Moderate) CFU/ML 1. ESCHERICHIA COLI M.I.C. RX --------- ------ Ampicillin >=32 R Cefazolin <=4 S Cefepime <=1 S Ceftriaxone <=1 S Ciprofloxacin >=4 R Gentamicin >=16 R Levofloxacin >=8 R Meropenem <=0.25 S Nitrofurantoin <=16 S Tetracycline <=1 S Pipercillin/Tazobactam <=4 S Trimethoprim/Sulfamethoxazole <=20 S Amoxicillin/Clavulanic Acid 4 S Aztreonam <=1 S Contact the Microbiology Department for any additional antibiotic reporting. * ML - Main Lab . END OF REPORT DEPARTMENT OF PATHOLOGY, [address] [place] [address] Geoff Bello M.D. Director [facility] # [id number] 22 Script Coordinator: [id number] Procedures Date Code Description Status 03/28/2018 [id number] Mammogram Completed 12/12/2016 [id number] Bone Mineral Density Test Completed 12/12/2016 40232650 Mammogram Completed 11/23/2015 50461535 Mammogram Completed 10/25/2014 [id number] Bone Mineral Density Test Completed 10/25/2014 [id number] Mammogram Completed 06/08/2013 76283455 Mammogram Completed 08/07/2011 52755826 Colonoscopy Completed 01/05/2011 [id number] Mammogram Completed 07/06/2009 92860243 Mammogram Completed 03/11/2007 547786067 Bone Mineral Density Test Completed 06/06/2006 74571583 Colonoscopy Completed Medical Devices Description No Information Available Encounters Type Date Location Provider Dx Diagnosis Office Visit 09/29/2018 [facility] Internal Nereyda Evans, L03.116 Cellul[facility] 2:[facility] S80.812D Abrasion, left lower leg, subsequent encounter Office Visit 07/01/2018 [facility] G47.33 Obstructive sleep 2:00p [facility] Santiago apnea (adult) [facility] (pediatric) Assessments Date Code Description Provider 12/22/2018 Z00.00 Encounter for general adult medical Juanjose Hollingsworth NP examination without abnormal findings 12/22/2018 D48.5 Neoplasm of uncertain behavior of skin Juanjose Hollingsworth NP 09/29/2018 L03.116 Cellulitis of left lower limb Nereyda Evans M.D. 09/29/2018 S80.812D Abrasion, left lower leg, subsequent Nereyda Evans M.D. encounter 07/01/2018 G47.33 Obstructive sleep apnea (adult) Rosalia Santiago NP (pediatric) Plan of Treatment Future Appointment(s):07/13/2019 2:40 pm - Juanjose Hollingsworth NP at [facility] Internal Medicine - [facility]12/22/2018 - Juanjose Hollingsworth NPZ00.00 Encounter for general adult medical examination without abnormal findingsComments:VACCINES:Flu shot every year in the fall.Tetanus: last one done in 2018, booster every 10 years, earlier if major injuryPneumonia vaccines: recommended at age 65Shingles vaccine : Shingrix: 90% effective. This is available at pharmacies.SCREENING:Colonoscopy : last one done in 2011, next due in 2021Mammogram: last done In March. You can this In March or wait a year.Pap smear: last done in October 2017.Bone density test (DEXA): done in 2017 - shows osteoporosisCholesterol: Recommended yearly.Follow up:6 months LCD48.5 Neoplasm of uncertain behavior of skinReferral :Gauri Pascal MD, Dermatology Functional Status Description No Information Available Mental Status Description No Information Available Referrals Refer to Reason for Referral Status Appt Date Gauri Pascal MD Created [address] [facility], [place] [address] [phone] Chester Whittaker D.D.S. Created [address] [place] [address] [phone]
[2019-02-08 08:07] VITALS: BP 110/70
--- NOTE | 2019-02-08 08:24 | UC ---
Throat Pain/Nasal Geovani HPI - HPI Summary HPI Summary: Pt c/o cold-sx since last Sunday 02/04. States started with chills and now coughing up green mucus. Also c/o sinus congestion. 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 - History of Current Complaint Chief Complaint: UCGeneralIllness Stated Complaint: URI Time Seen by Provider: 02/08/19 08:21 Hx Obtained From: Patient Hx Last Menstrual Period: post menopausal ?: No Onset/Duration: Sudden Onset, Lasting Days Severity: Moderate Pain Intensity: 0 Associated Signs & Symptoms: Positive: Dysphagia, Sinus Discomfort, Nasal Discharge - Allergies/Home Medications Allergies/Adverse Reactions: Allergies Allergy/AdvReac Type Severity Reaction Status Date / Time sulfamethoxazole Allergy Swelling Verified 02/08/19 08:01 [From Bactrim] trimethoprim [From Bactrim] Allergy Swelling Verified 02/08/19 08:01 PMH/Surg Hx/FS Hx/Imm Hx Previously Healthy: Yes Other History Of: Negative For: HIV - Surgical History Surgical History: Yes Surgery Procedure, Year, and Place: colonscopy - Family History Known Family History: Positive: Hypertension, Other - No Hx of cancer - Social History Alcohol Use: None Substance Use Type: None Smoking Status (MU): Never Smoked Tobacco - Immunization History Most Recent Influenza Vaccination: 2016 Most Recent Tetanus Shot: 2 years ago Review of Systems All Other Systems Reviewed And Are Negative: Yes ENT: Positive: Sore Throat, Ear Ache Respiratory: Positive: Cough Neurological: Positive: Headache Is Patient Immunocompromised?: No Physical Exam Triage Information Reviewed: Yes Appearance: Well-Nourished, Ill-Appearing, Pain Distress Vital Signs: Initial Vital Signs Temp 98.2 F 02/08/19 08:03 Pulse 94 02/08/19 08:03 Resp 16 02/08/19 08:03 BP 110/70 02/08/19 08:03 Pulse Ox 97 02/08/19 08:03 Vital Signs Reviewed: Yes Eye Exam: Normal ENT: Positive: Pharyngeal erythema - wiht PND, TM bulging, Tonsillar swelling Dental Exam: Normal Neck exam: Normal Respiratory Exam: Normal Respiratory: Positive: Chest non-tender, Lungs clear Cardiovascular Exam: Normal Abdominal Exam: Normal Bowel Sounds: Positive: Present Musculoskeletal Exam: Normal Neurological Exam: Normal Psychological Exam: Normal Skin Exam: Normal Throat Pain/Nasal Course/Dx - Course Course Of Treatment: hx obtained, exam performed, meds reviewed, - Differential Dx/Diagnosis Differential Diagnosis/HQI/PQRI: Otitis Media, Pharyngitis, Sinusitis, Tonsillitis, URI Provider Diagnosis: Sinusitis Discharge ED - Sign-Out/Discharge Documenting (check all that apply): Patient Departure All imaging exams completed and their final reports reviewed: No Studies - Discharge Plan Condition: Stable Disposition: HOME Prescriptions: Azithromyxin YOEL (NF) [Z-Yoel (Zithromax) 250 mg tabs #6] 2 tab PO .TODAY, THEN 1 DAILY #6 tab predniSONE [Prednisone 20 MG TAB] 40 mg PO DAILY #10 tablet Referrals: Jennifer Vivar MD [Primary Care Provider] - - Billing Disposition and Condition Condition: STABLE Disposition: Home
== END 2019-02-08 08:43 | disposition home or self-care (01) ==
LOC: UCEAST 07:53
DX: J32.9 Chronic sinusitis, unspecified (principal); J02.9 Acute pharyngitis, unspecified; H92.09 Otalgia, unspecified ear; R05 Cough; Z88.2 Allergy status to sulfonamides
CPT/HCPCS: 99212; G0463